=== PATIENT | female | born 2000 | race Two or more races ===

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

== ENCOUNTER 2020-01-03 19:42 | Emergency (ER) | payer OTHER ==
[~2020-01-03] VITALS: Ht 162.6 cm; Wt 86.2 kg
== END 2020-01-03 23:02 | disposition home or self-care (01) ==
LOC: ER 19:42
DX: O26.893 Other specified pregnancy related conditions, third trimester (principal); R51.9 Headache, unspecified; Z3A.35 35 weeks gestation of pregnancy; Z03.818 Encounter for observation for suspected exposure to other biological agents ruled out

== ENCOUNTER 2020-01-25 15:00 | Inpatient (IN) | payer OTHER ==
[~2020-01-25] VITALS: Ht 162.6 cm; Wt 3.6 kg
[2020-01-31] MEDS ORDERED: PRENATAL + DHA1 EAC1 PO (14:50)
[2020-01-31] MEDS ORDERED: AMPICILLIN TRI500 MG PO (14:51)
== END 2020-02-04 17:04 | disposition home or self-care (01) | DRG 788 ==
LOC: LDR 01-31 14:13 → SURG-SUITE 01-31 14:13 → O/R 01-31 14:13 → SURG-SUITE 02-01 15:25 → OB/GYN 02-06 15:00
PROVIDERS: ADMIT Obstetrics & Gynecology; ATTEND Obstetrics & Gynecology
PROC: 3E0P7VZ Introduction of Hormone into Female Reproductive, Via Natural or Artificial Opening (ICD-10-PCS; 2020-01-31)
PROC: 4A1HXFZ Monitoring of Products of Conception, Cardiac Rhythm, External Approach (ICD-10-PCS; 2020-01-31)
PROC: 3E033VJ Introduction of Other Hormone into Peripheral Vein, Percutaneous Approach (ICD-10-PCS; 2020-02-01)
PROC: 10D00Z1 Extraction of Products of Conception, Low, Open Approach (ICD-10-PCS; principal; 2020-02-01 14:00)
DX: O61.0 Failed medical induction of labor (principal); O42.02 Full-term premature rupture of membranes, onset of labor within 24 hours of rupture; Z3A.39 39 weeks gestation of pregnancy; Z37.0 Single live birth; Z20.828 Contact with and (suspected) exposure to other viral communicable diseases